=== PATIENT | female | born 1970 | race Hispanic/Latino ===

== ENCOUNTER 2019-01-08 10:08 | Outpatient (CLI) | payer BC ==
--- NOTE | 2019-01-12 06:46 | MMO ---
Bilateral MAMMO Bilat Screen [facility]. CLINICAL HISTORY: Patient is 48 years old and is seen for screening. The patient has the following family history of breast cancer: paternal aunt. The patient has no personal history of cancer. VIEWS: The views performed were: bilateral craniocaudal with tomosynthesis; bilateral mediolateral oblique; bilateral mediolateral oblique with tomosynthesis; cleavage view; and right exaggerated craniocaudal. FILMS COMPARED: The present examination has been compared to prior imaging studies performed at [facility] on 05/17/2013, 12/02/2014, 01/24/2016 and 03/12/2017. MAMMOGRAM FINDINGS: There are scattered fibroglandular densities. There are benign appearing calcifications seen in both breasts. There are no suspicious masses, suspicious calcifications, or new areas of architectural distortion. IMPRESSION: THERE IS NO MAMMOGRAPHIC EVIDENCE OF MALIGNANCY. A ROUTINE FOLLOW-UP MAMMOGRAM IN 1 YEAR IS RECOMMENDED. THE RESULTS OF THIS EXAM WERE SENT TO THE PATIENT. ACR BI-RADS Category 2 - Benign finding MAMMOGRAPHY NOTE: 1. A negative mammogram report should not delay a biopsy if a dominant of clinically suspicious mass is present. 2. Approximately 10% to 15% of breast cancers are not detected by mammography. 3. Adenosis and dense breasts may obscure an underlying neoplasm. Reported by: CARLITOS SHIPMAN MD Electonically Signed: [id number]
== END 2019-01-08 10:09 | disposition home or self-care (01) ==
LOC: BICMAMMO 10:08
PROVIDERS: ATTEND Family Medicine
DX: Z12.31 Encounter for screening mammogram for malignant neoplasm of breast (principal)
CPT/HCPCS: 77063; 77067

== ENCOUNTER 2020-01-25 07:38 | Outpatient (CLI) | payer BC, OTHER ==
[2020-01-25 14:32] LABS: #Eosinphils 0.1 thou/uL (0.0-0.7); #Lymphocytes 1.8 thou/uL (1.20-3.40); #Monocytes 0.5 thou/uL (0.11-0.59); #Neutrophils 6.4 thou/uL (1.40-6.50); %Basophils 0.2 % (0.0-1.0); %Eosinophils 1.2 % (0.0-10.0); %Lymphocytes 20.7 % (21.0-51.0); %Monocytes 5.5 % (0.0-10.0); %Neutrophils 72.4 % (42.0-75.0); Mean Corpuscular Volume 90.9 fL (78.0-98.0); Mean Platelet Volume 8.9 fL (7.4-10.4); Platelet Count 458 thou/uL (130-400); RBC Distribution Width 14.9 % (11.5-14.5); Red Blood Cell (RBC) Count 3.99 mill/uL (4.20-5.40); White Blood Cell (WBC) Count 8.8 thou/uL (4.8-10.8)
[2020-01-25 14:36] LABS: Hemoglobin A1c 5.6 % (4.0-6.0)
[2020-01-25 14:42] LABS: Bacteria/HPF None Seen HPF (None Seen); Bilirubin Negative (Negative); Blood, Urine Negative (Negative); Clarity Clear (Clear); Glucose, Urine (Dipstick) Normal (Negative); Ketone, Urine Negative (Negative); Leukocyte 75 Leu/uL (Negative); Nitrite Negative (Negative); Protein, Urine (Dipstick) Negative (Neg-Trace); RBC/HPF 0-3 HPF (0-3); Specific Gravity, Urine 1.012 (1.002-1.036); Squamous Epithelial 0-3 HPF (0-3); Urobilinogen Normal mg/dL (Less than 2); WBC/HPF 0-3 HPF (0-3); pH, Urine 6.5 (5.0-9.0)
[2020-01-25 14:43] LABS: Anion Gap 13 mmol/L (10-20); BUN (Urea Nitrogen) 13 mg/dL (9.8-20.1); Calc. Creatinine Clearance 0 mL/min (70-130); Calcium 9.3 mg/dL (7.8-10.44); Carbon Dioxide 23 mmol/L (22-29); Chloride 107 mmol/L (98-107); Estimated GFR-MDRD 79; Glucose 122 mg/dL (70-105); Potassium 3.5 mmol/L (3.5-5.1); Sodium 139 mmol/L (136-145)
[2020-01-26 12:51] LABS: SARS-CoV-2 MS2 Positive; SARS-CoV-2 N Gene Negative; SARS-CoV-2 S Gene Negative; SARS-CoV-2 by NAA Not Detected (NotDetected); SARS-CoV-2 orf1ab Negative
== END 2020-01-25 07:39 | disposition home or self-care (01) ==
LOC: LABBT 07:38
PROVIDERS: ATTEND Orthopaedic Surgery Hand Surgery
DX: Z01.812 Encounter for preprocedural laboratory examination (principal); M65.311 Trigger thumb, right thumb; M65.331 Trigger finger, right middle finger; Z20.828 Contact with and (suspected) exposure to other viral communicable diseases
CPT/HCPCS: 80048; 81001; 83036; 85025; 87635; U0003

== ENCOUNTER 2020-01-28 06:39 | Day surgery (SDC) | payer BC ==
[2020-01-26 09:58] VITALS: BMI 37.5
[2020-01-28] MEDS ORDERED: Fentanyl 100 MCG/2 ML VIAL ONE ×2 (08:30→10:30)
[2020-01-28] MEDS ORDERED: Midazolam HCl 2 mg/2 ml Vial ONE (08:30)
[2020-01-28] MEDS ORDERED: Sodium Chloride 0.9% 10 ML ONE (08:32)
[2020-01-28] MEDS ORDERED: Bupivacaine PF 0.5% 30 ML VIAL ONE (08:32)
[2020-01-28] MEDS ORDERED: Bacitracin Zinc Ointment 30 gm TUBE ONE (08:32)
[2020-01-28] MEDS ORDERED: Dexamethasone 20 MG/5 ML VIAL ONE (09:01)
[2020-01-28] MEDS ORDERED: Ondansetron PF 4 MG/2 ML Vial ONE (09:01)
[2020-01-28] MEDS ORDERED: Lidocaine 1% PF 5 ML VIAL ONE (09:01)
[2020-01-28] MEDS ORDERED: PROPOFOL 200 MG/20 ML VIAL ONE (09:01)
[2020-01-28] MEDS ORDERED: Ketorolac Tromethamine 30 MG/ML VIAL ONE (10:09)
--- NOTE | 2020-01-28 12:58 | OP ---
DATE OF PROCEDURE: 01/28/2020 PREOPERATIVE DIAGNOSIS: Trigger finger of the right thumb and of the right middle finger. POSTOPERATIVE DIAGNOSIS: Trigger finger of the right thumb and of the right middle finger. FINDINGS: Very thick A1 dolores with sclerosing tendovaginitis seen at the A1 pulleys of the middle finger and the thumb. PROCEDURE PERFORMED: 1. Right thumb A1 dolores release. 2. Right middle finger A1 dolores release. 3. Both sides had 2 mL of Celestone drip technique into the tendon area after release and both sides had a total of 10 mL of 0.5% Marcaine at each site. ESTIMATED BLOOD LOSS: 5 mL. TOURNIQUET TIME: 22 minutes. DESCRIPTION OF PROCEDURE: After successful general LMA technique, the limb prepped and draped. We gave the initial 10 mL total, divided equally between 2 incisions prior to procedure and 10 were given after it was divided equally. The patient had the limb prepped and draped. Limb exsanguinated and tourniquet inflated to 250 mmHg pressure and then the patient had the wounds outlined with a zigzag longitudinal incision and away from the first web space at the thumb and following the curvilinear MP joint flexion crease at the middle finger. Thumb was approached first and this incision was carried through skin and subcutaneous tissue with an 11 blade knife, and then we visualized the digital neurovascular bundles on both sides, preserved them. We dissected down to the A1 dolores mass, which was almost 2.5 mm thick with early degenerative changes and sclerosis. We released this in midline under direct visualization with a Sullivan blade to protect the neurovascular bundle. We then used the same technique over the curvilinear portion of the MP joint flexion crease, carried it through skin and subcutaneous tissue, identified both neurovascular bundles. Again, the A1 dolores was about 2 mm thick here, sclerosing, and very tight. We released this in the midline under direct visualization with a Sullivan blade. We released the tourniquet and obtained hemostasis. We irrigated the wounds, placed 2 mL of Celestone in each wound, then closed them with good hemostasis using the interrupted mattress technique 4-0 nylon. The patient then had a bulky dressing applied with bacitracin, Adaptic, 4x4s, Kerlix, and a small 2-inch Asa wraps, avoiding compression and left the operating room without evidence of anesthetic or operative complication. Job ID: [id number]
== END 2020-01-28 13:00 | disposition home or self-care (01) ==
LOC: SDC 06:39
PROVIDERS: ATTEND Orthopaedic Surgery Hand Surgery
PROC: 0LN70ZZ Release Right Hand Tendon, Open Approach (ICD-10-PCS; principal; 2020-01-28)
DX: M65.311 Trigger thumb, right thumb (principal); M65.331 Trigger finger, right middle finger; M65.841 Other synovitis and tenosynovitis, right hand; Z79.82 Long term (current) use of aspirin; Z79.899 Other long term (current) drug therapy; Z88.5 Allergy status to narcotic agent; Z88.8 Allergy status to other drugs, medicaments and biological substances
CPT/HCPCS: J0690; J1885; J2250; J3010; J3490; S0020

== ENCOUNTER 2020-06-16 09:01 | Outpatient (CLI) | payer BC ==
--- NOTE | 2020-06-16 09:54 | MMO ---
Bilateral MAMMO Bilat Screen [facility]. CLINICAL HISTORY: Patient is 50 years old and is seen for screening. The patient has the following family history of breast cancer: paternal aunt. The patient has no personal history of cancer. VIEWS: The views performed were: bilateral craniocaudal with tomosynthesis and bilateral mediolateral oblique with tomosynthesis. FILMS COMPARED: The present examination has been compared to prior imaging studies performed at [facility] on 12/02/2014, 01/24/2016, 03/12/2017 and 01/08/2019. This study has been interpreted with the assistance of computer-aided detection. MAMMOGRAM FINDINGS: There are scattered fibroglandular densities. There are benign appearing calcifications seen in both breasts. There are no suspicious masses, suspicious calcifications, or new areas of architectural distortion. IMPRESSION: THERE IS NO MAMMOGRAPHIC EVIDENCE OF MALIGNANCY. A ROUTINE FOLLOW-UP MAMMOGRAM IN 1 YEAR IS RECOMMENDED. THE RESULTS OF THIS EXAM WERE SENT TO THE PATIENT. ACR BI-RADS Category 2 - Benign finding MAMMOGRAPHY NOTE: 1. A negative mammogram report should not delay a biopsy if a dominant of clinically suspicious mass is present. 2. Approximately 10% to 15% of breast cancers are not detected by mammography. 3. Adenosis and dense breasts may obscure an underlying neoplasm. Reported by: ENE OSEGUERA MD Electonically Signed: [id number]
== END 2020-06-16 09:02 | disposition home or self-care (01) ==
LOC: BICMAMMO 09:01
PROVIDERS: ATTEND Family Medicine
DX: Z12.31 Encounter for screening mammogram for malignant neoplasm of breast (principal); Z80.3 Family history of malignant neoplasm of breast
CPT/HCPCS: 77063; 77067

== ENCOUNTER 2020-11-11 16:11 | Emergency (ER) | payer BC ==
[2020-11-11] MEDS ORDERED: Boostrix 0.5 ML (Tdap) VIAL ONE (19:04)
[2020-11-11] MEDS ORDERED: Ketorolac Tromethamine 30 MG/ML VIAL ONE (19:51)
== END 2020-11-11 20:17 | disposition home or self-care (01) ==
LOC: ERS 16:11
DX: S00.83XA Contusion of other part of head, initial encounter (principal); S80.02XA Contusion of left knee, initial encounter; I10 Essential (primary) hypertension; E78.00 Pure hypercholesterolemia, unspecified; Z79.899 Other long term (current) drug therapy; W10.9XXA Fall (on) (from) unspecified stairs and steps, initial encounter
CPT/HCPCS: 70450; 90471; 90715; 96372; J1885

== ENCOUNTER 2021-07-23 08:49 | Outpatient (CLI) | payer BC | END 2021-07-23 08:50 | disposition home or self-care (01) | LOC: BICMAMMO 08:49 | PROVIDERS: ATTEND Family Medicine | DX: Z12.31 Encounter for screening mammogram for malignant neoplasm of breast (principal); Z80.3 Family history of malignant neoplasm of breast | CPT/HCPCS: 77063; 77067 ==

== ENCOUNTER 2022-08-22 09:49 | Outpatient (CLI) | payer BC | END 2022-08-22 09:50 | disposition home or self-care (01) | LOC: BICMAMMO 09:49 | PROVIDERS: ATTEND Family Medicine | DX: Z12.31 Encounter for screening mammogram for malignant neoplasm of breast (principal) | CPT/HCPCS: 77063; 77067 ==

== ENCOUNTER 2025-04-29 12:52 | Outpatient (CLI) | payer BC | END 2025-04-29 12:53 | disposition home or self-care (01) | LOC: BICMAMMO 12:52 | PROVIDERS: ATTEND Family Medicine | DX: Z12.31 Encounter for screening mammogram for malignant neoplasm of breast (principal); Z80.3 Family history of malignant neoplasm of breast | CPT/HCPCS: 77063; 77067 ==